=== PATIENT | female | born 1995 | race Two or more races ===

== ENCOUNTER 2022-12-28 00:09 | Inpatient (IN) | payer MEDICAID, OTHER ==
[~2022-12-28] VITALS: Ht 167.6 cm; Wt 81.8 kg
[2022-12-28] MEDS: SODIUM CHLORIDE 0.9% 1,000 ML IVB ONE ×2 (00:18→01:18)
[2022-12-28] MEDS ORDERED: LORazepam 2MG/ML-1ML VIAL ONE (00:26)
[2022-12-28 00:31] VITALS: PULSE 99; RESP 32; O2SAT 97
[2022-12-28] MEDS ORDERED: levETIRAcetam 500 mg/100ml 100 ML IV ONE (00:45)
[2022-12-28] MEDS ORDERED: levETIRAcetam 1000 mg/100ml 100 ML IV ONE (00:45)
[2022-12-28 00:55] LABS: Basophils # (auto) 0.1 10 ^3/uL (0-0.2); Eosinophils # (auto) 0.2 10 ^3/uL (0-0.8); Eosinophils % (auto) 1.5 % (0.0-7.0)
[2022-12-28 00:56] LABS: Basophils % (auto) 0.6 % (0.0-2.0); Hemoglobin 18.4 g/dL (12.2-16.2); Lymphocytes # (auto) 4.8 10 ^3/uL (0.4-5.4); Lymphocytes % (auto) 29.9 % (10.0-50.0); Mean Corpuscular Hemoglobin 32.3 pg (28.0-32.0); Mean Corpuscular Hgb Conc. 31.9 g/dL (32.0-36.0); Mean Corpuscular Volume 101.3 fL (80.0-100.0); Monocytes # (auto) 1.1 10 ^3/uL (0-1.3); Monocytes % (auto) 6.9 % (0.0-12.0); Neutrophils # (auto) 9.8 10 ^3/uL (1.6-8.6); Neutrophils % (auto) 61.1 % (37.0-80.0); Red Blood Cells 5.69 10^6/uL (4.0-5.20); Red Cell Distribution Width 14.8 % (11.8-14.3); White Blood Cell 16.1 10^3/uL (4.4-10.8)
[2022-12-28 00:58] LABS: Hematocrit 57.6 % (36.0-46.0)
[2022-12-28] MEDS ORDERED: LORazepam 2MG/ML-1ML VIAL IV ONE ×2 (01:00→04:00)
[2022-12-28 01:14] LABS: Alanine Aminotransferase 11 U/L (7-40); Albumin 5.6 g/dL (3.2-4.8); Alkaline Phosphatase 114 U/L (46-116); Anion Gap 23 (5-15); Aspartate Aminotransferase 18 U/L (13-40); BUN/Creatinine Ratio 10.1 (10.0-20.0); Blood Alcohol < 3.0 mg/dL (<10); Blood Urea Nitrogen 10 mg/dL (9-23); Carbon Dioxide 12 mmol/L (20-30); Chloride 110 mmol/L (98-107); Glucose 135 mg/dL (74-106); Lipase 58 U/L (12-53); Potassium 3.6 mmol/L (3.5-5.1); Sodium 145 mmol/L (136-145)
[2022-12-28 01:15] LABS: Bilirubin, Total 0.4 mg/dL (0.2-1.0); Total Protein 8.7 g/dL (5.7-8.2)
[2022-12-28 01:24] LABS: Lactic Acid w/Reflex 16.1 mmol/L (0.4-2.0)
[2022-12-28 01:33] LABS: Phenytoin (Dilantin) < 2.0 ug/mL (10-20); Valproic Acid (Depakene) < 3.0 ug/mL (50-100)
[2022-12-28 01:45] LABS: INR 0.98 (0.9-1.15); Partial Thromboplastin Time 29.6 SEC (24.5-34.5); Prothrombin Time 10.3 sec (9.3-11.8)
[2022-12-28 02:13] LABS: Amphetamine Screen, Urine Pos (NEGATIVE); Barbiturate Scree,Urine Neg (NEGATIVE); Benzodiazephine Screen, Urine Neg (NEGATIVE); Cannabinoid Screen, Urine Pos (NEGATIVE); Cocaine Screen, Urine Neg (NEGATIVE); Opiate Scree,Urine Neg (NEGATIVE); Phencyclidine Screen, Urine Neg (NEGATIVE)
[2022-12-28] MEDS ORDERED: SODIUM CHLORIDE 0.9% 1,000 ML IV ONE (02:15)
[2022-12-28 02:19] LABS: Urine Bacteria MOD /hpf (None Seen); Urine Blood 3+ /uL (Negative); Urine Clarity HAZY (Clear); Urine Color Colorless (Yellow); Urine Hyaline Cast FEW /lpf (0 - 2); Urine Mucus FEW (None Seen); Urine Protein, UAD 2+ (Negative); Urine Specific Gravity 1.014 (1.001-1.035); Urine Urobilinogen Normal (Negative); Urine WBC 31 /hpf (0 - 5); Urine pH 5.5 (5.0-8.0)
[2022-12-28] MEDS ORDERED: IOHEXOL 300 MG/ML 100ML BOTTLE IJ ONE (02:25)
[2022-12-28] MEDS ORDERED: traZODone HCL 50 MG TAB PO ONE (04:00)
[2022-12-28] MEDS ORDERED: ACETAMINOPHEN 325 MG TAB PO ONE (04:30)
[2022-12-28] MEDS ORDERED: KETOROLAC TROMETH 30 MG/ML 1ML VIAL IV ONE (04:30)
[2022-12-28] MEDS ORDERED: DOCUSATE SOD 100 MG CAP PO PRN (05:30)
[2022-12-28] MEDS ORDERED: ACETAMINOPHEN 325 MG TAB PO PRN (05:30)
[2022-12-28] MEDS ORDERED: VANCOMYCIN PER PHARMACY 0 MG IV SCH (05:30)
[2022-12-28] MEDS ORDERED: SOD CHL 0.45% 1,000 ML IV SCH (05:30)
[2022-12-28] MEDS ORDERED: LACTATED RINGER'S 1,000 ML IV ONE (05:30)
[2022-12-28] MEDS ORDERED: LORazepam 2MG/ML-1ML VIAL IV PRN ×2 (05:30→23:00)
[2022-12-28] MEDS ORDERED: cefTRIAXone 1GM/50ML D5W 50 ML IV ONE (05:30)
[2022-12-28] MEDS ORDERED: MORPHINE SULFATE INJ 2 MG/ml SYRG IV PRN (06:15)
[2022-12-28] MEDS ORDERED: NITROGLYCERIN 0.4 MG SL TAB SL PRN (06:15)
[2022-12-28 06:23] LABS: Basophils # (auto) 0 10 ^3/uL (0-0.2); Basophils % (auto) 0.3 % (0.0-2.0); Eosinophils # (auto) 0 10 ^3/uL (0-0.8); Eosinophils % (auto) 0.1 % (0.0-7.0); Hematocrit 48.4 % (36.0-46.0); Hemoglobin 15.7 g/dL (12.2-16.2); Lymphocytes # (auto) 1.6 10 ^3/uL (0.4-5.4); Lymphocytes % (auto) 8.9 % (10.0-50.0); Mean Corpuscular Hemoglobin 31.9 pg (28.0-32.0); Mean Corpuscular Hgb Conc. 32.5 g/dL (32.0-36.0); Mean Corpuscular Volume 98.3 fL (80.0-100.0); Monocytes % (auto) 5.3 % (0.0-12.0); Neutrophils # (auto) 15.5 10 ^3/uL (1.6-8.6); Neutrophils % (auto) 85.4 % (37.0-80.0); Red Blood Cells 4.93 10^6/uL (4.0-5.20); Red Cell Distribution Width 13.9 % (11.8-14.3); White Blood Cell 18.1 10^3/uL (4.4-10.8)
[2022-12-28] MEDS ORDERED: VANCOMYCIN 1GM/250ML 250 ML IV ONE (06:30)
[2022-12-28 06:53] LABS: Alanine Aminotransferase 11 U/L (7-40); Alkaline Phosphatase 83 U/L (46-116); Anion Gap 11 (5-15); Aspartate Aminotransferase 36 U/L (13-40); Blood Urea Nitrogen 6 mg/dL (9-23); Calcium 8.3 mg/dL (8.5-10.1); Carbon Dioxide 18 mmol/L (20-30); Chloride 113 mmol/L (98-107); Glucose 106 mg/dL (74-106); Potassium 3.4 mmol/L (3.5-5.1); Sodium 142 mmol/L (136-145)
[2022-12-28 06:54] LABS: Albumin 4.2 g/dL (3.2-4.8); Bilirubin, Total 0.3 mg/dL (0.2-1.0); Total Protein 6.5 g/dL (5.7-8.2)
[2022-12-28 07:22] VITALS: PULSE 78; RESP 17; O2SAT 99
[2022-12-28] MEDS: NICOTINE 21MG/24 HR TOPICAL PATCH TD SCH (09:29)
[2022-12-28] MEDS ORDERED: levETIRAcetam 1000 mg/100ml 100 ML IV SCH (10:00)
[2022-12-28] MEDS ORDERED: FAMOTIDINE (10MG/ML) 2ML VL IV SCH (10:00)
[2022-12-28] MEDS: ONDANSETRON HCL 4 MG/2 ML VIAL IV PRN ×3 (13:31→20:27)
[2022-12-28] MEDS ORDERED: VANCOMYCIN 1GM/250ML 250 ML IV SCH (14:00)
[2022-12-28] MEDS: SOD CHL 0.9%/ KCL 20MEQ 1,000 ML IV SCH (15:26)
[2022-12-28] MEDS: HYDROcodone-ACET 5/325MG TAB PO PRN ×2 (15:33→20:28)
[2022-12-29] MEDS: SOD CHL 0.9%/ KCL 20MEQ 1,000 ML IV SCH (02:14)
[2022-12-29] MEDS: ONDANSETRON HCL 4 MG/2 ML VIAL IV PRN (03:47)
[2022-12-29] MEDS: HYDROcodone-ACET 5/325MG TAB PO PRN ×2 (03:47→11:13)
[2022-12-29 06:17] LABS: Alanine Aminotransferase 11 U/L (7-40); Albumin 3.6 g/dL (3.2-4.8); Alkaline Phosphatase 83 U/L (46-116); Anion Gap 9 (5-15); Aspartate Aminotransferase 34 U/L (13-40); Calcium 7.6 mg/dL (8.7-10.4); Carbon Dioxide 19 mmol/L (20-30); Chloride 115 mmol/L (98-107); Glucose 95 mg/dL (74-106); Magnesium 2.1 mg/dL (1.6-2.6); Sodium 143 mmol/L (136-145)
[2022-12-29 06:18] LABS: Bilirubin, Total 0.5 mg/dL (0.2-1.0); Total Protein 5.6 g/dL (5.7-8.2)
[2022-12-29 06:22] LABS: BUN/Creatinine Ratio 7.7 (10.0-20.0); Blood Urea Nitrogen < 5 mg/dL (9-23)
[2022-12-29 06:27] LABS: Basophils # (auto) 0 10 ^3/uL (0-0.2); Basophils % (auto) 0.3 % (0.0-2.0); Eosinophils # (auto) 0.1 10 ^3/uL (0-0.8); Eosinophils % (auto) 1.2 % (0.0-7.0); Hematocrit 39.7 % (36.0-46.0); Hemoglobin 13.5 g/dL (12.2-16.2); Lymphocytes # (auto) 1.7 10 ^3/uL (0.4-5.4); Monocytes # (auto) 0.6 10 ^3/uL (0-1.3); Monocytes % (auto) 7.1 % (0.0-12.0); Neutrophils # (auto) 6.4 10 ^3/uL (1.6-8.6); Neutrophils % (auto) 72.4 % (37.0-80.0); Nucleated Red Blood Cells % 0.1 %; Red Blood Cells 4.09 10^6/uL (4.0-5.20); Red Cell Distribution Width 13.8 % (11.8-14.3); White Blood Cell 8.8 10^3/uL (4.4-10.8)
[2022-12-29 09:20] VITALS: BP 113/78; PULSE 80; RESP 16; TEMP 97.8; O2SAT 100
[2022-12-29] MEDS: NICOTINE 21MG/24 HR TOPICAL PATCH TD SCH (10:00)
[2022-12-29 10:33] VITALS: PULSE 77; RESP 17; TEMP 97.8; O2SAT 100
[2022-12-29] MEDS: cefTRIAXone 1GM/50ML D5W 50 ML IV SCH ×2 (11:14→16:26)
[2022-12-29] MEDS ORDERED: PROP1TAB53 PO (11:24)
[2022-12-29] MEDS ORDERED: TRAZ-227 PO (11:24)
[2022-12-29] MEDS ORDERED: SERT150C PO (11:24)
[2022-12-29] MEDS ORDERED: HYDROcodone-ACET 10/325MG TAB PO PRN (12:45)
== END 2022-12-29 17:28 | disposition left against medical advice (07) | DRG 52 ==
LOC: ER 00:09 → TELE 06:16 → TELE-CENTR 12-29 08:47
PROVIDERS: ADMIT Nurse Practitioner Family; ATTEND Hospitalist
DX: G92.9 Unspecified toxic encephalopathy (principal); E87.20 Acidosis, unspecified; G40.909 Epilepsy, unspecified, not intractable, without status epilepticus; Z53.29 Procedure and treatment not carried out because of patient's decision for other reasons; F15.10 Other stimulant abuse, uncomplicated; N39.0 Urinary tract infection, site not specified; Z91.148 Patient's other noncompliance with medication regimen for other reason
CPT/HCPCS: 36415; 70450; 70551; 71045; 74177; 80053; 80164; 80185; 80307; 80320; 81001; 81025; 82140; 82962; 83605; 83690; 83735; 83880; 84484; 84702; 85025; 85610; 85730; 87040; 93005; 93306; 95819; G0378; J0696; J1885; J2405; J3490